=== PATIENT | male | born 1980 | race Caucasian/White ===

== ENCOUNTER 2019-01-21 17:17 | Emergency (ER) | payer MEDICAID ==
[~2019-01-21] VITALS: Ht 182.9 cm; Wt 100.0 kg
[~2019-01-21 17:17] MED LIST: HYDR-3972 PO; METR-159 PO
[2019-01-21 18:04] VITALS: BP 131/52
== END 2019-01-21 20:44 | disposition home or self-care (01) ==
LOC: ER 17:17
DX: R60.9 Edema, unspecified (principal); F12.90 Cannabis use, unspecified, uncomplicated; F15.90 Other stimulant use, unspecified, uncomplicated; Z59.0 Homelessness; Z56.0 Unemployment, unspecified; Z90.49 Acquired absence of other specified parts of digestive tract; Z98.890 Other specified postprocedural states; Z88.2 Allergy status to sulfonamides
CPT/HCPCS: 99283

== ENCOUNTER 2022-04-16 02:39 | Emergency (ER) | payer MEDICAID ==
[~2022-04-16] VITALS: Ht 182.9 cm; Wt 116.8 kg
[2022-04-16] MEDS ORDERED: normal saline 1000ML IV soln IVB ONE (03:40)
[2022-04-16] MEDS ORDERED: ketamine 50 mg/ml 10ml vial IM ONE (03:55)
[2022-04-16] MEDS ORDERED: iohexol 350MG/ML 100ml bottle IV ONE (04:01)
--- NOTE | 2022-04-16 04:10 | NUR ---
unable to start IV after multiple attempts, Dr Jimenez aware. Medicated per order. Police at bedside, unable to interview pt, he is difficult to understand, won't sit still or open eyes "it hurts..my belly, my shoulders...it hurts so bad",
[2022-04-16] MEDS ORDERED: ketamine 50 mg/ml 10ml vial IV ONE (04:15)
--- NOTE | 2022-04-16 04:25 | NUR ---
Dr Jimenez at bedside to place central line, pt is calmer, able to lie still
--- NOTE | 2022-04-16 04:32 | NUR ---
pt slightly agitated, medicated per md order, RT is at bedside
--- NOTE | 2022-04-16 04:49 | NUR ---
pt to CT on monitor with RN and RT
[2022-04-16 05:13] LABS: ALANINE AMINOTRANSFERASE 36 U/L (12-78); ALBUMIN 4.2 G/DL (3.4-5.0); ALKALINE PHOSPHATASE 57 IU/L (46-116); ANION GAP 21 (8-16); ASPARTATE AMINO TRANSFERASE 23 U/L (10-37); BILIRUBIN,TOTAL 0.7 MG/DL (0.1-1.0); BLOOD UREA NITROGEN 18 MG/DL (7-18); BUN/CREATININE RATIO 11.8 (5.4-32.0); CALCIUM 9.1 MG/DL (8.5-10.1); CHLORIDE 103 MMOL/L (99-107); CREATINE KINASE 347 U/L (39-308); CREATININE 1.52 MG/DL (0.60-1.10); GLUCOSE 113 MG/DL (70-104); SODIUM 142 MMOL/L (135-145); TOTAL CARBON DIOXIDE 17.6 MMOL/L (24-32); TOTAL PROTEIN 8.3 G/DL (6.4-8.2); eGFR 51 ML/MIN
[2022-04-16 05:17] LABS: ETHANOL < 0.010 GM/DL (0.0-0.010)
--- NOTE | 2022-04-16 05:25 | NUR ---
pt back to room 5, pt is GCS 14, awake and oriented to person only, resting quietly now, no moaning, pain is 0/10, resp even and unlabored, [place], not able to give more details, he also admitted to doing meth today. Pt has minor abrasion to forehead, no trauma noted to back or posterior head
[2022-04-16 06:00] LABS: BASOPHILS % (AUTO) 0.3 % (0-1); EOSINOPHILS % (AUTO) 0 % (0-6); HEMOGLOBIN 12.3 g/dl (14.0-17.9); LYMPHOCYTES # (AUTO) 1.3 X10'3 (1.1-4.8); MEAN CORPUSCULAR HEMOGLOBIN 29.1 PG (27.0-31.0); MEAN CORPUSCULAR HGB CONC 33.3 g/dL (33.0-36.5); MEAN CORPUSCULAR VOLUME 87.4 FL (78-98); MEAN PLATELET VOLUME 9.4 FL (7.4-10.4); MONOCYTES # (AUTO) 1.6 X10'3 (0-0.9); MONOCYTES % (AUTO) 8.7 % (2-12); NEUTROPHILS # (AUTO) 15.2 X10'3 (1.8-7.7); PLATELET COUNT 230 X10'3 (140-440); RED BLOOD COUNT 4.23 X10'6 (4.70-6.10)
[2022-04-16] MEDS ORDERED: potassium Cl 20 mEq SR tablet PO STA (06:13)
[2022-04-16] MEDS ORDERED: POTASSIUM BICARB 20meq eff tab 20 MEQ TABLET.EFF PO ONE (06:55)
[2022-04-16 07:45] VITALS: BP 137/86
[2022-04-16 08:50] LABS: CLARITY,URINE CLEAR (Clear); COLOR,URINE YELLOW (Yellow); GLUCOSE, URINE NEGATIVE (Neg); KETONES,URINE 15 mg/dl (Neg); LEUKOCYTE ESTERASE ,URINE NEGATIVE (Neg); NITRITES, URINE NEGATIVE (Neg); OCCULT BLOOD,URINE TRACE-LYSED (Neg); PH,URINE 6.5 (4.8-8.0); PROTEIN,URINE TRACE mg/dl (Neg); UROBILINOGEN,URINE 0.2 E.U/dL (0.2-1.0)
[2022-04-16 08:53] LABS: UA COLLECTION TYPE VOIDED
[2022-04-16 08:54] LABS: WBC,URINE 0-4 /HPF (0-4)
[2022-04-16 08:55] LABS: BACTERIA,URINE NONE SEEN /HPF (Neg); MUCUS STRANDS FEW /LPF (Neg); RBC,URINE 0-2 /HPF (0-2); SQUAMOUS EPITHELIAL CELL,UR FEW /LPF (FEW)
[2022-04-16 09:11] LABS: URINE AMPHETAMINE SCREEN POSITIVE (Neg); URINE BARBITUATE SCREEN NEGATIVE (Neg); URINE BENZODIAZEPINES SCREEN NEGATIVE (Neg); URINE CANNABINOID SCREEN POSITIVE (Neg); URINE COCAINE SCREEN NEGATIVE (Neg); URINE METHADONE SCREEN NEGATIVE (Neg); URINE OPIATE SCREEN NEGATIVE (Neg); URINE PHENCYCLIDINE SCREEN NEGATIVE (Neg)
[2022-04-16] MEDS ORDERED: acetaminophen 325mg tablet PO ONE (10:35)
== END 2022-04-16 11:49 | disposition home or self-care (01) ==
LOC: ER 02:40
DX: S00.81XA Abrasion of other part of head, initial encounter (principal); F24 Shared psychotic disorder; E87.6 Hypokalemia; Z88.2 Allergy status to sulfonamides; F12.10 Cannabis abuse, uncomplicated; F15.10 Other stimulant abuse, uncomplicated; Z59.00 Homelessness unspecified; Z56.0 Unemployment, unspecified; Z79.899 Other long term (current) drug therapy; Y04.0XXA Assault by unarmed brawl or fight, initial encounter; Y93.89 Activity, other specified; Y92.89 Other specified places as the place of occurrence of the external cause; Y99.8 Other external cause status
CPT/HCPCS: 36415; 36556; 70450; 71045; 71260; 72125; 74177; 80053; 80305; 80320; 81001; 82550; 82948; 84484; 85025; 85610; 96360; 96361; 96372; 99291; 99292; C1751; J3490; J7030; Q9967; A4620

== ENCOUNTER 2025-06-29 05:38 | Emergency (ER) | payer MEDICAID ==
[~2025-06-29] VITALS: Ht 182.9 cm; Wt 127.0 kg
[2025-06-29 05:57] VITALS: TEMP 97.7
[2025-06-29 06:49] LABS: MEAN PLATELET VOLUME 9.7 FL (7.4-10.4); RED CELL DISTRIBUTION WIDTH 15.2 % (11.5-14.5)
[2025-06-29 06:50] LABS: LEUKOCYTE ESTERASE ,URINE NEGATIVE (Neg); NITRITES, URINE NEGATIVE (Neg); OCCULT BLOOD,URINE LARGE (Neg)
[2025-06-29 07:01] LABS: CREATININE 1.34 MG/DL (0.60-1.10); TOTAL CARBON DIOXIDE 26.6 MMOL/L (24-32); eCRCL 78 ML/MIN; eGFR 58 ML/MIN
[2025-06-29 07:19] LABS: UA COLLECTION TYPE NON-SPECIFIED
[2025-06-29 07:20] LABS: MUCUS STRANDS NONE SEEN /LPF (Neg); SQUAMOUS EPITHELIAL CELL,UR NONE SEEN /LPF (FEW)
--- NOTE | 2025-06-29 07:39 | Physician Documentation ---
History of Present Illness ~ General Chief Complaint: Flank Pain Stated Complaint: FLANK PAIN Time Seen by MD: 07:30 Primary Medical Doctor: None Source: patient (8) History of Present Illness Initial Comments Patient comes in for evaluation of left flank pain. He reports no unusual activities over the last few days, felt well when he went to sleep, but awoke at around 6:30 a.m. this morning with pain over the left posterior back. He has some associated nausea but denies vomiting, diarrhea, fever, dysuria, hematuria, or any change in the pain with urination. Prior to coming in he took some Naprosyn but continues to have significant pain. He does report that the pain is worse when he attempts to move. Medication Reconciliation Allergies: Coded Allergies: Sulfa (Sulfonamide Antibiotics) (Verified Allergy, Unknown, 06/29/25) Scheduled Metronidazole* (Flagyl*), 500 MG PO TID Scheduled PRN Hydrocodone Bit/Acetaminophen (Hydrocodon-Acetaminophn 10-325 tablet), 1 TAB PO QID PRN for pain Past Medical History Past Medical History: No Pertinent History Past Surgical History: appendectomy, orthopedic surgeries Smoking Status: Current every day smoker Alcohol Use: None Drug Use: marijuana, methamphetamine Lives with: Alone Lives In: Homeless Occupation: unemployed Review of Systems All Other Systems at this time: Reviewed and Negative Physical Exam Physical Exam Vital Signs: Temperature: 97.7, Heart Rate: 77, Respiratory Rate: 18, BP: 146/88, Pulse Oximetry: 95, Weight: 127.000 Physical Exam General: Pt is awake, alert, oriented x4 in mild distress and well appearing. Complains of more pain when moving to a sitting position. Head: Normocephalic and atraumatic. Eyes: Conjunctiva normal. ENT: Mucous membranes moist. Neck: Supple. Chest: Clear to auscultation bilaterally, without rales, rhonchi, or wheezes. There is no accessory muscle use or retractions. Cardiac: Regular rate and rhythm without murmurs, gallops or rubs. Palpation of the chest wall is normal. Abd: Soft, nondistended, nontender, with normoactive bowel sounds. No guarding or rebound. Back: There is no midline tenderness. Patient points to the posterior iliac crest area as the point of maximal pain, which he now reports his radiating arou nd towards the left lower quadrant, but there is no point tenderness anywhere in his back. Extremities: Within normal limits without cyanosis, clubbing, or edema. Skin: [place], warm and dry with no significant rash appreciated. Neuro: Cranial nerves II-XII grossly intact. The gait is normal. Progress Results/Orders Results/Orders Orders - KWAKU CHAND MD Morphine 2mg/Ml Inj. (Morphine Inj.) (06/29/25 07:50) Monitor (06/29/25 07:46) Saline Lock (06/29/25 07:46) Nothing By Mouth (06/29/25 Lunch) Ct Abdomen Pelvis (06/29/25 08:14) Completed Orders - KWAKU CHAND MD Morphine 4mg/Ml Inj. (Morphine Inj.) (06/29/25 07:50) Normal Saline 1000ml (0.9% Sodium Chlori (06/29/25 07:50) Ct Abdomen Pelvis (06/29/25 08:14) Medications Received in ER Medications (Trade) Dose Ordered Sig/Marycruz Route PRN Reason Start Time Stop Time Status Last Admin Dose Admin (morphine inj.) 4 mg ONCE ONCE IV 06/29/25 07:50 06/29/25 07:51 DC 06/29/25 08:02 4 MG (0.9% sodium chloride (NS) 1000ml IV soln) 1,000 ml ONCE ONCE IVB 06/29/25 07:50 06/29/25 07:51 DC 06/29/25 08:02 1,000 ML Vital Signs 06/29/25 06/29/25 06/29/25 06/29/25 05:57 07:39 07:44 08:02 Temp 97.7 Pulse 77 75 Resp 18 19 18 18 B/P (MAP) 146/88 123/86 (98) Pulse Ox 95 94 O2 Flow Rate 0 Laboratory Tests Test 06/29/25 06:00 06/29/25 06:18 Urine Specimen Description Non-specified Urine Color Yellow Urine Clarity Slightly cloudy Urine pH 6.0 Urine Specific [place] >=1.030 Urine Protein Trace Urine Glucose (UA) Negative Urine Ketones Negative Urine Occult Blood Large H Urine Nitrite Negative Urine Bilirubin Negative Urine Urobilinogen 0.2 Urine Leukocyte Esterase Negative Urine RBC 20-50 Urine WBC 0-4 Urine Squamous Epithelial Cells None seen Urine Bacteria Few Urine Mucus None seen Urine Culture Indicated Not ind Volume Urine Centrifuged 10 ml Urine Comment White Blood Count 7.3 Red Blood Count 4.79 Hemoglobin 14.5 Hematocrit 42.2 Mean Corpuscular Volume 88.1 Mean Corpuscular Hemoglobin 30.3 Mean Corpuscular Hemoglobin Concent 34.4 Red Cell Distribution Width 15.2 H Platelet Count 194 Mean Platelet Volume 9.7 Neutrophils (%) (Auto) 64.6 Lymphocytes (%) (Auto) 25.3 Monocytes (%) (Auto) 7.5 Eosinophils (%) (Auto) 1.9 Basophils (%) (Auto) 0.7 Neutrophils # (Auto) 4.7 Lymphocytes # (Auto) 1.9 Monocytes # (Auto) 0.6 Eosinophils # (Auto) 0.1 Basophils # (Auto) 0.1 CBC Comment Sodium Level 136 Potassium Level 3.4 L Chloride Level 103 Carbon Dioxide Level 26.6 Anion Gap 6 L Blood Urea Nitrogen 13 Creatinine 1.34 H Estimated GFR/1.73 m2 58 BUN/Creatinine Ratio 9.7 L Glucose Level 138 H Calcium Level 8.1 L Total Bilirubin 0.5 Aspartate Amino Transf (AST/SGOT) 21 Alanine Aminotransferase (ALT/SGPT) 37 Alkaline Phosphatase 62 Total Protein 7.6 Albumin 3.8 Globulin 3.8 Albumin/Globulin Ratio 1.0 L Lipase 21 Chemistry Comments Medical Decision Making Additional information obtaine: N/A Findings Differential Diagnosis Patient presenting with left-sided flank pain, and hematuria. No evidence for anterior abdominal pathology. Laboratory workup reassuring with no evidence for urinary infection or leukocytosis. CT scan confirms a stone near the UVJ, likely to pass spontaneously. Patient prescribed Flomax for assistance and passing the stone, we will stay well hydrated, understands to return to the emergency department for any worsening of his symptoms. Departure Time of Disposition: 09:25 Disposition: 01 HOME / SELF CARE / HOMELESS Impression: Primary Impression: Calculus of kidney Condition: Stable Discharge Instructions: Kidney Stones Additional Instructions: Stay well hydrated. Take the Flomax medication until you are sure that your symptoms have resolved in the stone has passed. Follow-up with your regular provider. Return immediately to the emergency department if you have significant blood in the urine, fever, increasing pain, vomiting, or any other concerns. Referrals: NO PRIMARY CARE PROVIDER (PCP) Prescriptions Tamsulosin Hcl* (Flomax*) 0.4 Mg Cap.sr.24h 1 CAP PO DAILY, #10 CAP Prov: KWAKU CHAND MD 06/29/25 Education Educated: Patient Educated regarding: diagnosis, treatment Signature Scribe Signature: Attestation: KWAKU CHAND MD Jun 29, 2025 07:39
[2025-06-29] MEDS: normal saline 1000ML IV soln IVB ONE (08:02)
[2025-06-29] MEDS: morphine 4 MG/ML inj SYRINge IV ONE (08:02)
--- NOTE | 2025-06-29 08:54 | RADIOLOGY REPORT ---
Exam: CT CT ABDOMEN PELVIS History: ABD PAIN, LEFT SIDED Comparison Study: CT CHEST ABDOMEN PELVIS on DOS: 04/16/22 Technique: Multidetector spiral CT of the abdomen was performed from lung bases to pubic symphysis. Imaging was performed without IV contrast. Axial, coronal and sagittal multiplanar reformats were obtained from the axial data set by the technologist. Radiation Dose : 1. Abdomen/Pelvis: CTDIvol 36.8 mGy, DLP 2055 mGy*cm. Findings: Evaluation of solid organs is limited due to lack of intravenous contrast use. Lung Bases: No acute or significant lung base finding. Normal heart size. No pleural or pericardial effusion. Liver: Hepatomegaly. Hepatic steatosis. Gallbladder and Biliary Tree: Post cholecystectomy. Spleen: Unremarkable Pancreas: The pancreas is grossly normal in appearance. Adrenal Glands: Unremarkable Kidneys: Mild left hydroureteronephrosis with 0.1 cm punctate stone at the distal left ureter just proximal to the UVJ. The right kidney is grossly normal without calculi or hydronephrosis. Bladder: Grossly unremarkable for degree of distention. Bowel: Mild diffuse gastric wall thickening. Moderate diffuse colonic bowel wall thickening most prominent in the descending and rectosigmoid colon. Moderate volume colonic stool. The small bowel is normal in caliber and distribution. The appendix is not visualized; however, no secondary findings of acute appendicitis identified. Ascites: Absent Lymphadenopathy: No mesenteric, retroperitoneal or periportal lymphadenopathy. Abdominal Wall and Mesentery: Unremarkable. Vasculature: The visualized abdominal aorta is normal in size and caliber. Evaluation of abdominal and pelvic vessels is limited due to lack of intravenous contrast. Pelvic Organs: Unremarkable Musculoskeletal: No aggressive focal bony lesions, acute fractures or dislocation. IMPRESSION: Mild left hydroureteronephrosis with 0.1 cm punctate stone at the distal left ureter just proximal to the UVJ. Moderate diffuse colonic bowel wall thickening most prominent in the descending and rectosigmoid colon. Findings may be due to underdistention or colitis. Mild diffuse gastric wall thickening which may be due to underdistention or gastritis. Hepatomegaly and hepatic steatosis. Radiation optimization: All CT scans at this facility use at least one of these dose optimization techniques: automated exposure control mA and/or kV adjustment per patient size (includes targeted exams where dose is matched to clinical indication) or iterative reconstruction.
[2025-06-29] MEDS ORDERED: TAMS-55 PO (09:27)
[2025-06-29 09:36] VITALS: BP 136/88; PULSE 77; RESP 19; O2SAT 93
== END 2025-06-29 09:37 | disposition home or self-care (01) ==
LOC: ER 05:38
DX: N20.0 Calculus of kidney (principal); F17.200 Nicotine dependence, unspecified, uncomplicated; F12.90 Cannabis use, unspecified, uncomplicated; Z59.00 Homelessness unspecified; Z88.2 Allergy status to sulfonamides; Z90.49 Acquired absence of other specified parts of digestive tract; Z98.890 Other specified postprocedural states; Z56.0 Unemployment, unspecified; Z60.2 Problems related to living alone
CPT/HCPCS: 36415; 74176; 80053; 81001; 83690; 85025; 96361; 96374; 99285; J2270; J7030